=== PATIENT | male | born 1945 | race Caucasian/White ===

== ENCOUNTER 2022-11-19 13:07 | Outpatient (CLI) | payer MEDICARE, SELFPAY ==
[2022-11-19 15:24] LABS: Hematocrit 45.9 % (42.0-52.0); Hemoglobin 15.8 g/dL (14.0-18.0); Mean Corpuscular HGB Conc 34.4 g/dl (32-36); Mean Corpuscular Hemoglobin 30.9 pg (26-34); Mean Corpuscular Volume 89.6 fl (80-100); Mean Platelet Volume 11.1 fl (7.4-10.4); Platelet Count Result 203 k/mm3 (150-375); Red Blood Count 5.12 M/mm3 (4.6-6.20); Red Cell Distribution Width 13.4 % (11.5-14.5); White Blood Count 6.1 K/mm3 (4.5-10.0)
[2022-11-19 15:29] LABS: Appearance Urine Clear (Clear); Bilirubin Urine Negative (Negative); Blood Urine Negative (Negative); Color Urine Yellow (Yellow); Glucose Urine UA Negative (Negative); Ketones Urine Negative (Negative); Leukocyte Esterase Ur Negative LEU/UL (NEGATIVE); Nitrate Urine Negative (Negative); Protein Urine Negative (Negative); Urobilinogen Urine 0.2 mg/dL (<2.0); pH Urine 5.5 (5.0-9.0)
[2022-11-19 15:31] LABS: Add Urine Microscopic? NO
[2022-11-19 15:36] LABS: Anion Gap 6 mmol/L (8-16); Blood Urea Nitrogen 20 mg/dL (9-20); Calcium 9.4 mg/dL (8.4-10.2); Carbon Dioxide 25 mmol/L (22-30); Chloride 106 mmol/L (98-107); Estimated Glomerular Filt Rate > 60; Glucose 115 mg/dL (65-110); Potassium 3.7 mmol/L (3.4-5.0); Sodium 137 mmol/L (137-145)
[2022-11-19 15:37] LABS: Prothrombin Time 13.2 Seconds (11.1-14.7)
[2022-11-19 15:38] LABS: Partial Thromboplastin Time 30.2 SECONDS (22.3-36.8)
== END 2022-11-19 13:08 | disposition home or self-care (01) ==
LOC: ANHSURGERY 13:15
PROVIDERS: Visit Provider Neurological Surgery
DX: M51.26 Other intervertebral disc displacement, lumbar region (principal); Z01.818 Encounter for other preprocedural examination
CPT/HCPCS: 36415; 80048; 81003; 85027; 85610; 85730; 86850; 86900; 86901

== ENCOUNTER 2022-11-22 02:39 | Day surgery (SDC) | payer MEDICARE, SELFPAY ==
[2022-11-19 11:02] VITALS: BMI 24.4
--- NOTE | 2022-11-19 11:37 | PC.NURSE ---
PRE-OP INSTRUCTIONS, PLEASE READ CAREFULLY Report to the Outpatient Waiting Room, entrance under the green pavilion located off [facility], at time _11_ on date _11/22/22_. Planned Procedure Time: _1 PM_. Time changes happen often and if your time is changed the preop area will call you the afternoon before. - You and your visitor will be asked to self-screen and do not enter if you have any COVID symptoms. - Only one visitor is requested with a max of two and NO children visitors are allowed at this time. - The patient visitor may be requested to leave or wait in car when not with patient due to distancing restrictions. - A mask is optional within the hospital at this time. Patients may have clear liquids (water, carbonated beverages, clear teas, apple juice) until 3 hours prior to surgery (1000 AM) with a maximum of 20 ounces. - No food from midnight until time of surgery Take the following medications with a SIP of water the morning of surgery: __HYDROCODONE, BACLOFEN IF NEEDED__ DO NOT STOP ANY OF YOUR OTHER PRESCRIPTION MEDICATIONS PRIOR TO SURGERY ?EXCEPT THE FOLLOWING Medications to discontinue per DR. ROBERSON - _PT STATES STOPPING MELOXICAM ABOUT 2 WEEKS AGO AND ASPIRIN 1 WEEK AGO_ Medications to discontinue per ANESTHESIA - _MULTIVITAMIN OF TODAY Date to take last dose 11/19/22_ Please no make-up, nail serbian, hairspray, perfume, deodorant, or body powder the day of surgery. No jewelry (including any body piercings) or valuables the day of surgery, leave them at home. Please take a shower or bath the night before, or the morning of, surgery with an antibacterial soap. Wear comfortable, loose fitting clothing. - Jewelry must be removed prior to entering the operating room. Rings and piercings that are not removed may be cut off. - The hospital will not accept responsibility for valuables. - Please leave all valuables, including medications, at home the day of surgery. If you are going home after surgery, a licensed cdl truck driver must drive you home. - NO public transportation without another adult if you receive anesthesia. - We recommend that an adult stay with you for 24 hours following discharge. - We also recommend that you do not drive, make important decision, drink alcoholic beverages, or take any drugs that were not prescribed by your health care provider for at least 24 hours after your discharge time. Follow any additional instructions given to you from your surgeon. If you or anyone in your household have experienced Covid symptoms in the past week, please notify your surgeon or the nurse liaison at the phone number below for possible testing. Telephone instructions given to _PATIENT_and asked if any additional questions and then verbalized understanding. Patient advised to call surgeon office or pre surgery nurse liaison [phone] if any additional questions.
[2022-11-22] VITALS (8 sets, daily range): BP systolic 120–160; BP diastolic 74–110; PULSE 63–75; RESP 12–20; TEMP 36.8–36.9; O2SAT 98–100
--- NOTE | ~2022-11-22 | XR_ITS ---
XR fluoroscopy no charge 11/22/2022 15:15 Clinical information: L3-4 discectomy. TECHNIQUE: Fluoroscopy used during L3-4 discectomy performed by [Lane Triana MD] on 2022. 5 seconds of fluoroscopy with 2 images captured. ] FINDINGS: Correlate with procedure note. IMPRESSION: Fluoroscopy used during L3-4 discectomy procedure. Reviewed, dictated and finalized at location A. AND DIE MAKER/DESIGNER
[2022-11-22] MEDS: fentaNYL CITRATE INJ (*CRX) 100 MCG/2 ML VIAL 50 MCG IV PUSH ×4 (12:17→13:48)
--- NOTE | 2022-11-22 12:30 | WPDANESEPPF ---
Anes - Initial Pre Proc Eval Procedure: Operation Date: 11/22/22 13:00 Proposed Procedures p Right L3-4 Microscopic Lumbar Discectomy - Lane Triana MD Date/Time: 11/22/22 12:30 Surgeon: Lane Triana MD Pre Op Diagnosis: Right L3-4 herniated disc Patient Data Age: 77 Gender: M Height: 1.83 m Weight: 78.4 kg Last Vital Signs Temp 98.3 F 11/22/22 12:19 Pulse 66 11/22/22 12:19 Resp 14 11/22/22 12:19 BP 160/110 H 11/22/22 12:19 Pulse Ox 98 11/22/22 12:19 O2 Del Method Room Air 11/22/22 12:19 Allergies Allergy/AdvReac Type Severity Reaction Status Date / Time No Known Allergies Allergy Verified 11/19/22 10:56 Home Medications Medication Instructions Recorded Confirmed Type aspirin 81 mg tablet,delayed 81 mg PO DAILY 11/12/22 11/19/22 History release baclofen 10 mg tablet 10 mg PO DAILY PRN Muscle Spasm 11/12/22 11/19/22 History hydrocodone 5 mg-acetaminophen 325 1 tablet PO QHS PRN Pain 11/12/22 11/19/22 History mg tablet meloxicam 15 mg tablet 15 mg PO DAILY 11/12/22 11/19/22 History multivitamin (Daily Multi-Vitamin 1 tablet PO DAILY 11/12/22 11/19/22 History tablet) simvastatin 20 mg tablet 20 mg PO DAILY 11/12/22 11/19/22 History tamsulosin 0.4 mg capsule (Flomax) 0.4 mg PO DAILY 11/12/22 11/19/22 History Patient hx anesthesia problems: none Family hx anesthesia problems: none Results Review: All pre-operative results and documents have been reviewed as part of the pre-operative evaluation. [facility] Past Medical History Medical History Hyperlipemia Implantable loop recorder present Radiculopathy, lumbar region Badillo' syndrome Vertigo Surgical History Surgical History History of heart valve replacement Family History Family History Other Diabetes mellitus Heart disease Hypertension Social History Social History Smoking status: Never smoker Second hand tobacco smoke exposure: No Alcohol intake: never Substance use: never Substance use type: does not use Lack of Transportation: No Lack of Food: Never True Current Housing: I Have Housing Concerned About Future Housing: No Difficulty Paying Gas/Electric Bills: No Difficulty Paying for Meds: No Currently Unemployed: No Education: Decline to Answer Difficulty w/ Childcare or Family Care: No Living arrangements: with family Spiritual care concerns: No Anes - Eval Final PreProcedure Day of Procedure 11/22/22 12:30 Patient weight: normal Heart: regular rate and rhythm Lungs: clear to auscultation Airway: Mallampati scale class II Neurological: alert and oriented Last oral intake: >/= 8 hours ASA classification: III Emergent: no Anesthetic plan: proceed Anesthesia type and monitoring: general ETT and standard monitoring Results Review: All pre-operative results and documents have been reviewed as part of the pre-operative evaluation. Informed Consent: The patient's anesthetic plan and its attendant risks and benefits were discussed with the patient/family/POA. Questions were solicited and answers provided to the satisfaction of the patient/family/POA.
[2022-11-22] MEDS: LACTATED RINGERS 1,000 ML 30 ML IV CONT ×2 (12:36→15:10)
--- NOTE | 2022-11-22 13:54 | WPDHPUPDATE1 ---
History and Physical Update Update Date/Time: 11/22/22 13:54 History and Physical has been reviewed, including an updated exam of the patient. There are NO changes in the patient's condition. Risks, benefits, and alternatives have been discussed and questions answered. Patient agrees to proceed with procedure.
--- NOTE | 2022-11-22 13:54 | PM.IMHP ---
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 He has had this pain for several weeks without any permanent improvement with nonsurgical treatment. Does not report any specific muscle group weakness or dermatomal numbness. He is not having any bowel or bladder difficulty. The pain is severe and unremitting and is limiting and distracting for him on a daily basis. He presents now for definitive management by way of decompression. Review of Systems Review of Systems: the patient denies shortness of breath, cough, fever, chills, nausea, vomiting, weight loss, weight gain, chest pain, dysuria. He has back and leg pain as above. He has muscular and joint stiffness and discomfort. His review of systems is otherwise negative except as noted elsewhere on 12 systems. [facility] Past Medical History Medical History Hyperlipemia Implantable loop recorder present Radiculopathy, lumbar region Badillo' syndrome Vertigo Surgical History Surgical History History of heart valve replacement Family History Family History Other Diabetes mellitus Heart disease Hypertension Social History Social History Smoking status: Never smoker Second hand tobacco smoke exposure: No Alcohol intake: never Substance use: never Substance use type: does not use Lack of Transportation: No Lack of Food: Never True Current Housing: I Have Housing Concerned About Future Housing: No Difficulty Paying Gas/Electric Bills: No Difficulty Paying for Meds: No Currently Unemployed: No Education: Decline to Answer Difficulty w/ Childcare or Family Care: No Living arrangements: with family Spiritual care concerns: No Meds Home Medications and Allergies Home Medications Medication Instructions Recorded Confirmed Type aspirin 81 mg tablet,delayed 81 mg PO DAILY 11/12/22 11/19/22 History release baclofen 10 mg tablet 10 mg PO DAILY PRN Muscle Spasm 11/12/22 11/19/22 History hydrocodone 5 mg-acetaminophen 325 1 tablet PO QHS PRN Pain 11/12/22 11/19/22 History mg tablet meloxicam 15 mg tablet 15 mg PO DAILY 11/12/22 11/19/22 History multivitamin (Daily Multi-Vitamin 1 tablet PO DAILY 11/12/22 11/19/22 History tablet) simvastatin 20 mg tablet 20 mg PO DAILY 11/12/22 11/19/22 History tamsulosin 0.4 mg capsule (Flomax) 0.4 mg PO DAILY 11/12/22 11/19/22 History Allergies Allergy/AdvReac Type Severity Reaction Status Date / Time No Known Allergies Allergy Verified 11/19/22 10:56 Vital Signs Vital Signs - 24 hr 11/22/22 12:19 Temperature 98.3 F Pulse Rate 66 Respiratory Rate 14 Blood Pressure 160/110 H Pulse Oximetry 98 Oxygen Delivery Room Air Exam Narrative: Patient is a normally developed, normal appearing male supine in the hospital bed in no acute distress. He is awake, alert, oriented x3, with good fund of knowledge, recall events and fluent speech. His face is symmetrical, tongue is midline, his pupils are equal reactive to light and his extraocular movements are intact without diplopia or nystagmus. His palate elevates symmetrically. He has good strength on both sides of the face and good sensation. Shoulder shrug is normal. There is no drift, dysmetria or dyspraxia of either upper extremity. His breathing is unlabored, he speaks in complete sentences without difficulty. Regular rate and rhythm Skin pallor is normal. There is no abdominal distention. Strength is 5/5 in all muscle groups of the bilateral lower
[2022-11-22] MEDS: ceFAZolin 2 GM/D5W 50 ML 2 GM/50 ML BAG IVPB (13:58)
[2022-11-22] MEDS: LIDO 1%/EPINEPHRINE 1:100,000 20 ML VIAL 10 ML INFILTRATE (14:41)
--- NOTE | 2022-11-22 15:07 | W.PM.PROC2 ---
Procedure Note - Detailed Date of Procedure 11/22/22 Pre-op Diagnosis Right L3-4 herniated disc Post-op Diagnosis Same Procedure Performed Right L3-[address]ke[address] Surgeon Lane Triana MD [employer] Machine Operator Angela Anesthesia General Description of Procedure the patient was brought to the operating room in the supine position, was sedated, intubated and placed under general anesthesia in routine fashion. He was then turned into the prone position on a Shane frame. The area of operation on his back was examined, marked for incision, prepped and draped in routine sterile fashion. Incision was marked over the L3 and L4 spinous processes in the midline. This area was injected with 0.5% lidocaine with [id number] epinephrine. Intravenous antibiotics given prior to incision. Incision was made with a 10 blade scalpel down to the lumbodorsal fascia. A subperiosteal dissection of the muscle soft tissue away from spinous process and lamina on the right at L3-4 was performed with a subperiosteal elevator and Bovie cautery. A verifying x-rays obtained to verify the level of operation. At the L3-4 level on the right a Midas Terrell drill was used to perform a hemilaminectomy and medial facetectomy. Under microscopy the yellow ligament was lifted and removed piecemeal using Kerrison punches. The thecal sac was retracted medially exposing subligamentous and free fragment below. A nerve hook was used to tease out a few fragments to make it possible to retract the dura. An Boris curette, curved curette and Kolb rongeur were used to push free and removed fragments of herniated disc from beneath the nerve and thecal sac. This was done until a Krystina instrument could be placed in the ventral epidural space above and below the nerve root to confirm lack of compression. The wound was then copiously irrigated with bacitracin irrigation all bleeding was stopped with bipolar and Bovie cautery and Gelfoam thrombin powder. The wound was then closed in layered fashion with 2-0 Vicryl interrupted sutures in the lumbodorsal fascia and Rosanne's layer. 3-0 Vicryl buried interrupted sutures were placed in the dermis and the skin was closed with a running 4-0 Monocryl subcuticular stitch and dressed with Dermabond. The patient was then allowed to wake up in the operating room and was taken to the recovery room in stable condition. There were no immediate complications of this operation. All counts were reported correct at the end of the case. Blood loss was 10 cc. The patient was neurologically at his baseline postoperatively. CPT codes: 59141 Estimated Blood Loss 10 IV Fluids 1,000 Complications None Condition Stable Disposition PACU [facility] Billing Surgery - Charge Forward: Surgery Billing
== END 2022-11-22 17:08 | disposition home or self-care (01) ==
PROVIDERS: Visit Provider Neurological Surgery
PROC: (CPT 63005; principal; 2022-11-22 13:00)
DX: M51.26 Other intervertebral disc displacement, lumbar region (principal); E78.5 Hyperlipidemia, unspecified; Z79.82 Long term (current) use of aspirin; Z95.4 Presence of other heart-valve replacement
CPT/HCPCS: 63030; 36415; 80048; 81003; 85027; 85610; 85730; 86850; 86900; 86901; 99199; J0690; J1100; J2250; J2405; J2704; J2710; J3010; J7120